=== PATIENT | male | born 1965 | race Caucasian/White ===

== ENCOUNTER 2020-02-09 07:03 | Outpatient (CLI) | payer BC, SELFPAY ==
--- NOTE | ~2020-02-09 | US_ITS ---
US right upper quadrant INDICATION: PROCEDURE: Realtime right upper abdominal ultrasound. COMPARISON: No prior studies for comparison. FINDINGS: The pancreas is normal without focal mass or pancreatic ductal dilation. Liver echotexture is normal without focal mass or intrahepatic biliary dilatation. There is normal directional flow i n the portal vein. There are echogenic foci nondependent aspect of the gallbladder with comet tail artifact, consistent with adenomyomatosis. Common bile duct measures 5 mm. No sonographic Kim's sign. Incidental note is made of a right renal cyst. IMPRESSION: 1: Gallbladder adenomyomatosis. Reviewed, dictated and finalized at location A.
== END 2020-02-09 07:04 | disposition home or self-care (01) ==
PROVIDERS: PCP Family Medicine; Referring Provider Internal Medicine Gastroenterology; Visit Provider Family Medicine
DX: R10.11 Right upper quadrant pain (principal)
CPT/HCPCS: 76705

== ENCOUNTER 2020-03-07 01:51 | Outpatient (CLI) | payer BC, SELFPAY ==
[2020-03-07 19:29] LABS: SARS-CoV-2 RNA PCR Negative
== END 2020-03-07 01:52 | disposition home or self-care (01) ==
LOC: ANHCOVIDDT 01:52
PROVIDERS: PCP Family Medicine; Visit Provider Internal Medicine Gastroenterology
DX: Z01.812 Encounter for preprocedural laboratory examination (principal); Z11.59 Encounter for screening for other viral diseases
CPT/HCPCS: 87635; C9803; U0003

== ENCOUNTER 2020-03-10 01:15 | Day surgery (SDC) | payer BC, SELFPAY ==
[2020-03-03 11:10] VITALS: BMI 26.6
--- NOTE | 2020-03-03 14:08 | PC.NURSE ---
[address] QUACH' S OFFICE OF PATIENT INFORMING THIS NURSE THAT HE HAS STOPPED TAKING HIS AMITRIPTYLINE AND CHOLESTYRAMINE. ALSO INFORMED THAT PATIENT DID NOT SEE SURGEON BECAUSE HE THOUGHT THAT WHEN HE SAW DR. BO, HE WAS SEEING THE SURGEON. JARROD BRITTON.
[2020-03-10] MEDS: LACTATED RINGERS 1,000 ML 150 ML IV CONT (11:57)
[2020-03-10 12:01] VITALS: BP 118/81; PULSE 65; RESP 18; TEMP 36.4; O2SAT 100; BMI 25.9
--- NOTE | 2020-03-10 12:37 | WPDANESEPPF ---
Anes - Initial Pre Proc Eval Procedure: Operation Date: 03/10/20 13:00 Proposed Procedures p Esophagogastroduodenoscopy & Colonoscopy - Rohit Morelos MD Date/Time: 03/10/20 12:37 Surgeon: Rohit Morelos MD Pre Op Diagnosis: Epigastric Pain/ Diarrhea Patient Data Age: 55 Gender: M Height: 5 ft 8 in Weight: 77.2 kg Last Vital Signs Temp 97.6 F 03/10/20 12:01 Pulse 65 03/10/20 12:01 Resp 18 03/10/20 12:01 BP 118/81 03/10/20 12:01 Pulse Ox 100 03/10/20 12:01 Allergies Allergy/AdvReac Type Severity Reaction Status Date / Time amitriptyline Allergy Mild Nightmare Verified 03/03/20 09:57 cholestyramine Allergy Mild Other Verified 03/03/20 09:54 Home Medications Medication Instructions Recorded Confirmed Type hydrocortisone 1 % topical cream 1 applic RECTAL QID PRN gm 05/13/19 03/10/20 History with perineal applicator ohgoldxalk-hbkzyyv-semgovut 50 1 cap PO .Q8 PRN #60 cap 05/16/19 03/10/20 Rx mg-325 mg-40 mg capsule alprazolam 1 mg tablet 1 mg PO TID PRN #90 tablet 02/27/20 03/10/20 Rx Bifidobacterium infantis [Align] 1 mg PO DAILY 03/03/20 03/10/20 History bismuth subsalicylate 2 tablet PO Q1H PRN 03/03/20 03/10/20 History [Pepto-Bismol] loperamide [Imodium A-D] 2 mg PO Q6H PRN 03/03/20 03/10/20 History Patient hx anesthesia problems: none Family hx anesthesia problems: none [facility] Social History Social History (Updated 02/27/20 @ 10:50 by Lovely Arboleda) Social History: Smoking status: Former smoker Tobacco type: cigarettes Second hand tobacco smoke exposure: No Smoking end date: 07/10/03 Alcohol intake: never Substance use: never Substance use type: does not use Additional occupation/education comments: pt got laid off back in September Gender identity (if verbalized by the patient): Male Anes - Eval Final PreProcedure Day of Procedure 03/10/20 12:37 Patient weight: normal Heart: regular rate and rhythm Airway: Mallampati scale class II Neurological: alert and oriented Last oral intake: >/= 8 hours ASA classification: II Emergent: no Anesthetic plan: proceed Anesthesia type and monitoring: general GIVS and standard monitoring Informed Consent: The patient's anesthetic plan and its attendant risks and benefits were discussed with the patient/family/POA. Questions were solicited and answers provided to the satisfaction of the patient/family/POA.
--- NOTE | 2020-03-10 13:36 | WPDHPUPDATE1 ---
History and Physical Update Update Date/Time: 03/10/20 13:36 History and Physical has been reviewed, including an updated exam of the patient. There are NO changes in the patient's condition. Risks, benefits, and alternatives have been discussed and questions answered. Patient agrees to proceed with procedure.
--- NOTE | 2020-03-10 13:36 | WPDANESEPPF ---
Anes - Initial Pre Proc Eval Procedure: Operation Date: 03/10/20 13:00 Proposed Procedures p Esophagogastroduodenoscopy & Colonoscopy - Rohit Morelos MD Date/Time: 03/10/20 13:36 Surgeon: Rohit Morelos MD Pre Op Diagnosis: Epigastric Pain/ Diarrhea Patient Data Age: 55 Gender: M Height: 5 ft 8 in Weight: 77.2 kg Last Vital Signs Temp 97.6 F 03/10/20 12:01 Pulse 65 03/10/20 12:01 Resp 18 03/10/20 12:01 BP 118/81 03/10/20 12:01 Pulse Ox 100 03/10/20 12:01 Allergies Allergy/AdvReac Type Severity Reaction Status Date / Time amitriptyline Allergy Mild Nightmare Verified 03/03/20 09:57 cholestyramine Allergy Mild Other Verified 03/03/20 09:54 Home Medications Medication Instructions Recorded Confirmed Type hydrocortisone 1 % topical cream 1 applic RECTAL QID PRN gm 05/13/19 03/10/20 History with perineal applicator uojwojlerc-cnoygbi-snamzrmp 50 1 cap PO .Q8 PRN #60 cap 05/16/19 03/10/20 Rx mg-325 mg-40 mg capsule alprazolam 1 mg tablet 1 mg PO TID PRN #90 tablet 02/27/20 03/10/20 Rx Bifidobacterium infantis [Align] 1 mg PO DAILY 03/03/20 03/10/20 History bismuth subsalicylate 2 tablet PO Q1H PRN 03/03/20 03/10/20 History [Pepto-Bismol] loperamide [Imodium A-D] 2 mg PO Q6H PRN 03/03/20 03/10/20 History Patient hx anesthesia problems: none Family hx anesthesia problems: none [facility] Social History Social History (Updated 02/27/20 @ 10:50 by Lovely Arboleda) Social History: Smoking status: Former smoker Tobacco type: cigarettes Second hand tobacco smoke exposure: No Smoking end date: 07/10/03 Alcohol intake: never Substance use: never Substance use type: does not use Additional occupation/education comments: pt got laid off back in September Gender identity (if verbalized by the patient): Male Anes - Eval Final PreProcedure Day of Procedure 03/10/20 13:36 Patient weight: normal Heart: regular rate and rhythm Lungs: clear to auscultation Airway: Mallampati scale class II Neurological: alert and oriented Last oral intake: >/= 8 hours ASA classification: III Emergent: no Anesthetic plan: proceed Anesthesia type and monitoring: general GIVS and standard monitoring Informed Consent: The patient's anesthetic plan and its attendant risks and benefits were discussed with the patient/family/POA. Questions were solicited and answers provided to the satisfaction of the patient/family/POA.
[2020-03-10 14:08] VITALS: BP 90/57; PULSE 77; RESP 16; O2SAT 98
[2020-03-10 14:18] VITALS: BP 111/72; PULSE 74; RESP 20; O2SAT 100
[2020-03-10 14:28] VITALS: BP 113/79; PULSE 70; RESP 15; O2SAT 100
== END 2020-03-10 14:45 | disposition home or self-care (01) ==
PROVIDERS: PCP Family Medicine; Visit Provider Internal Medicine Gastroenterology
PROC: 0DJ08ZZ Inspection of Upper Intestinal Tract, Via Natural or Artificial Opening Endoscopic (ICD-10-PCS; CPT 43235; principal; 2020-03-10 13:00)
DX: R19.7 Diarrhea, unspecified (principal); K57.30 Diverticulosis of large intestine without perforation or abscess without bleeding; K29.50 Unspecified chronic gastritis without bleeding; F41.1 Generalized anxiety disorder; G43.909 Migraine, unspecified, not intractable, without status migrainosus; Z87.891 Personal history of nicotine dependence; Z79.899 Other long term (current) drug therapy
CPT/HCPCS: 45380; 43239; 88305; J2001; J2704; J7120

== ENCOUNTER 2023-07-28 08:41 | Outpatient (CLI) | payer OTHER, SELFPAY ==
--- NOTE | 2023-07-28 | ECHO_ITS ---
Patient Info Name: Andrew Hill Age: 58 years : 1965 Gender: Male Ht: 70 in Wt: 172 lbs BSA: 1.97 m2 HR: 68 bpm BP: 134 / 85 mmHg Technical Quality: Good Exam Date: 07/28/2023 9:03 AM Exam Location: Echo Lab Patient Status: Outpatient Admit Date: 07/28/2023 Staff Ordering Physician: Brigitte Farrar PA-C Field Naturalist: Annalisa Rodriguez RDCS Attending Provider: Brigitte Farrar PA-C Referring Physician: Charan MACIAS; Exam Type: CA echo doppler color flow Study Info Indications R00.2 - Palpitations R01.1 - Cardiac murmur, unspecified Complete two-dimensional, color flow and Doppler transthoracic echocardiogram is performed. Summary 1. Complete two-dimensional, color flow and Doppler transthoracic echocardiogram is performed. 2. Left ventricular chamber dimension is normal. 3. Ventricular septum is sigmoid shaped. No LVOT obstruction. 4. Left ventricular systolic function is normal, estimated at 60-65%. 5. The left ventricular diastolic function is grade I diastolic dysfunction. 6. E/e' 10 is mildly elevated. 7. Global longitudinal strain is normal at -18.8%. 8. Left atrial chamber dimension is mildly enlarged. 9. There is trace tricuspid valve regurgitation. 10. No pulmonary hypertension, estimated pulmonary arterial systolic pressure is 26 mmHg. Left Ventricle E/e' 10 is mildly elevated. Global longitudinal strain is normal at -18.8%. Ventricular septum is sigmoid shaped. No LVOT obstruction. Left ventricular chamber dimension is normal. Left ventricular systolic function is normal, estimated at 60-65%. The left ventricular diastolic function is grade I diastolic dysfunction. Right Ventricle Right ventricular systolic function is normal and with normal TAPSE 2.6 cm. Right ventricular chamber dimension is normal. Left Atria Left atrial chamber dimension is mildly enlarged. Right Atria Right atrial chamber dimension is normal. Aortic Valve The aortic valve is trileaflet. There is no aortic valve stenosis. There is no aortic valve regurgitation. Pulmonic Valve There is no pulmonic regurgitation. Mitral Valve There is no mitral valve stenosis. There is no mitral valve regurgitation. Tricuspid Valve There is trace tricuspid valve regurgitation. No pulmonary hypertension, estimated pulmonary arterial systolic pressure is 26 mmHg. Pericardium/Pleural There is no pericardial effusion. Inferior Vena Cava Normal inferior vena cava with >50% collapse upon inspiration consistent with normal right atrial pressure, 5 mmHg. Aorta The aortic root size at the sinus of Valsalva is normal. Left Ventricular Outflow Tract Name Value Normal LVOT 2D LVOT Diameter 2.0 cm LVOT Doppler LVOT Peak Gradient 5 mmHg LVOT Mean Gradient 3 mmHg LVOT VTI 22 cm LVOT VTI/AV VTI Ratio 0.9 LVOT Stroke Volume 68 ml LVOT CO 4.4 l/min LVOT CI 2.2 l/min/m2 Pulmonic Valve Name Va
== END 2023-07-28 08:42 | disposition home or self-care (01) ==
PROVIDERS: PCP Family Medicine; Visit Provider Physician Assistant
DX: R01.1 Cardiac murmur, unspecified (principal); R93.1 Abnormal findings on diagnostic imaging of heart and coronary circulation; I07.1 Rheumatic tricuspid insufficiency
CPT/HCPCS: 93306

== ENCOUNTER 2023-08-15 09:45 | Outpatient (CLI) | payer OTHER, SELFPAY ==
--- NOTE | ~2023-08-15 | US_ITS ---
EXAMINATION: US abdomen limited DATE: 08/15/2023 10:51 INDICATION: Benign neoplasm of extrahepatic bile duct. TECHNIQUE: Multiple grayscale and Doppler ultrasound images of the abdomen were obtained. COMPARISON: Ultrasound 02/09/2020 FINDINGS: The visualized portions of the head and body of pancreas are normal. The liver is normal wi thout focal lesion. There is antegrade flow in main portal vein. The gallbladder is normal in size an d contains sludge. No gallstones or gallbladder wall thickening. There is no sonographic Kim sign. The common duct is normal and measures 5 mm. IMPRESSION: 1. No significant abnormality. Reviewed, dictated and finalized at location A. DIRECTOR
== END 2023-08-15 09:46 | disposition home or self-care (01) ==
LOC: ANHIMG 09:49
PROVIDERS: PCP Family Medicine; Visit Provider Physician Assistant
DX: D13.5 Benign neoplasm of extrahepatic bile ducts (principal)
CPT/HCPCS: 76705